=== PATIENT | male | born 1960 | race Caucasian/White ===

== ENCOUNTER 2018-08-21 19:44 | Emergency (ER) | payer MEDICAID ==
[2018-08-21 20:17] VITALS: BP 111/87
[2018-08-21] MEDS ORDERED: Ketorolac 30 MG/ML SDV IM ONE (20:24)
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
== END 2018-08-21 20:24 | disposition left against medical advice (07) ==
LOC: FB.ED 19:44
DX: M54.2 Cervicalgia (principal); F17.210 Nicotine dependence, cigarettes, uncomplicated; Z53.21 Procedure and treatment not carried out due to patient leaving prior to being seen by health care provider
CPT/HCPCS: 99282

== ENCOUNTER 2020-01-18 17:09 | Emergency (ER) | payer MEDICAID ==
[2020-01-18 18:42] VITALS: BP 140/89; PULSE 72
--- NOTE | 2020-01-21 07:03 | ER ---
DATE SEEN: 01/18/2020 CHIEF COMPLAINT: Dizziness. HISTORY OF PRESENT ILLNESS: Anjum is a 59-year-old male, a poor historian, complains of an episode of dizziness at home. He was getting up from his bed to go the bathroom, and he was unsteady and almost fell because he was feeling dizzy. Also, he complains of vague symptoms including back pain, hip pain, depressed mood, and generalized apathy. He admits to smoking marijuana earlier today. PAST MEDICAL HISTORY: Chronic pain. MEDICATIONS: Multivitamin a day. REVIEW OF SYSTEMS: All other systems were noncontributory. PHYSICAL EXAMINATION: VITAL SIGNS: Blood pressure 156/88, pulse is 76, temperature 97.8. MUSCULOSKELETAL: He has a normal gait and station. There is tenderness on the lumbar and the sacroiliac joint areas bilaterally. CARDIOVASCULAR AND RESPIRATORY SYSTEMS: Normal. MENTAL STATUS: He is alert. Slow in speech, but normal thought process. NEUROLOGIC: No focal findings. HEENT: Head is atraumatic. LABORATORIES: Troponin negative. Electrolytes and CBC unremarkable. EKG was negative. Urine drug screen was positive for amphetamines and marijuana. IMPRESSION: 1. Dizziness. 2. Chronic pain syndrome. 3. Polysubstance abuse. TREATMENT: Advised him to see Dr. Loo on Monday. /[id number] TRE/KEV
== END 2020-01-18 18:42 | disposition home or self-care (01) ==
LOC: FB.ED 17:09
DX: F19.10 Other psychoactive substance abuse, uncomplicated (principal); G89.4 Chronic pain syndrome; R42 Dizziness and giddiness
CPT/HCPCS: 36415; 80048; 80305-QW; 80307; 84484; 85025; 93005; 99283; 99284-25

== ENCOUNTER 2024-02-08 18:00 | Emergency (ER) | payer MEDICAID ==
[2024-02-08] MEDS ORDERED: Acetaminophen/oxyCODONE 325-5 MG Tab PO ONE (18:01)
[2024-02-08] MEDS: Acetaminophen/oxyCODONE 325-5 MG Tab PO STA (18:15)
[2024-02-08] MEDS: Ketorolac 30 MG/ML SDV IM STA (18:16)
[2024-02-08 19:37] VITALS: BP 114/75; PULSE 102
== END 2024-02-08 19:17 | disposition home or self-care (01) ==
LOC: FB.ED 18:00
DX: G62.9 Polyneuropathy, unspecified (principal)
CPT/HCPCS: 96372; 99283; A9270-GY; J1885

== ENCOUNTER 2024-09-29 19:52 | Emergency (ER) | payer MEDICAID, OTHER ==
[2024-09-29 20:23] VITALS: BP 139/90; PULSE 75
[2024-09-29] MEDS: Ketorolac 30 MG/ML SDV IM ONE (20:34)
[2024-09-29] MEDS: Acetaminophen/oxyCODONE 325-5 MG Tab PO PRN (20:34)
== END 2024-09-29 21:29 | disposition home or self-care (01) ==
LOC: FB.ED 19:52
DX: M48.061 Spinal stenosis, lumbar region without neurogenic claudication (principal); G63 Polyneuropathy in diseases classified elsewhere; F17.210 Nicotine dependence, cigarettes, uncomplicated; Z79.899 Other long term (current) drug therapy
CPT/HCPCS: 96372; 99283; A9270; J1885